=== PATIENT | female | born 1980 | race Caucasian/White ===

== ENCOUNTER 2018-06-01 05:39 | Emergency (ER) | payer OTHER ==
[~2018-06-01] VITALS: Ht 162.6 cm; Wt 63.5 kg
[~2018-06-01 05:39] MED LIST: NOHOMEMEDICATIONS; NORCO 5-325 TA1 EACH PO; ZOFRAN ODT4 M1 PO
[2018-06-01 06:13] LABS: ABSOLUTE BASOPHILS 0.1 thou/uL (0.0-0.2); ABSOLUTE EOSINOPHILS 0.3 thou/uL (0.0-0.7); ABSOLUTE LYMPHOCYTES 1.5 thou/uL (0.8-5.3); ABSOLUTE MONOCYTES 0.4 thou/uL (0.0-1.2); ABSOLUTE NEUTROPHILS 1.5 thou/uL (1.6-8.1); BASOPHILS 2.3 %; EOSINOPHILS 7.6 %; HEMATOCRIT 44.3 % (37.0-47.0); HEMOGLOBIN 14.8 gm/dL (12.0-15.0); LYMPHOCYTES 39.7 %; MCH 32.5 pg (26.0-34.0); MCHC 33.5 g/dL (28.0-37.0); MONOCYTES 10.6 %; MPV 8.1 fl. (7.2-11.1); NUCLEATED RBCS 0 /100WBC; PLATELET COUNT* 259 thou/uL (150-400); POLYS 39.8 %; RBC 4.56 mil/uL (4.20-5.00); RDW-CV 11.9 % (10.5-14.5); WBC 3.8 thou/uL (4.0-11.0)
[2018-06-01 06:18] LABS: ANION GAP 5 mmol/L (7-16); BUN 9 mg/dL (7-18); CALCIUM 8.6 mg/dL (8.5-10.1); CHLORIDE 104 mmol/L (98-107); CO2 30 mmol/L (21-32); CREATININE 0.7 mg/dL (0.6-1.3); GLUCOSE 97 mg/dL (70-99); POTASSIUM 3.9 mmol/L (3.5-5.1); SODIUM 139 mmol/L (136-145)
[2018-06-01 06:29] LABS: ALBUMIN 4.1 g/dL (3.4-5.0); ALKALINE PHOSPHATASE 50 U/L (46-116); LIPASE 169 U/L (73-393); NT-PRO BRAIN NAT PEPTIDE 39 pg/mL (<300); SGOT 25 U/L (15-37); SGPT 18 U/L (30-65); TOTAL BILIRUBIN 0.9 mg/dL (<0.1-1.0); TOTAL PROTEIN 7.7 g/dL (6.4-8.2); TROPONIN-I LEVEL <0.06 ng/mL (<0.06)
[2018-06-01 06:30] LABS: URINE BILIRUBIN NEGATIVE (Negative); URINE BLOOD 1+ (Negative); URINE CLARITY CLEAR; URINE COLOR YELLOW; URINE GLUCOSE-RANDOM NEGATIVE (Negative); URINE KETONES NEGATIVE (Negative); URINE LEUKOCYTES-REFLEX NEGATIVE (Negative); URINE NITRITE-REFLEX NEGATIVE (Negative); URINE PROTEIN NEGATIVE (Negative); URINE SPECIFIC GRAVITY <= 1.005 (1.005-1.030); URINE UROBILINOGEN 0.2 E.U./dl (0.2-1.0)
[2018-06-01 06:33] LABS: PROTIME 10.1 Seconds (9.20-11.50)
[2018-06-01 06:49] LABS: BACTERIA-REFLEX 1-9 Few /HPF (None Seen); CASTS None Seen /LPF (None Seen); CRYSTALS None Seen /LPF (None Seen); MUCUS 0-3 Light strn/LPF (None Seen); SQUAMOUS 4-10 Moderate /LPF (0-3); URINE RBC 3-10 Few /HPF (0-2); URINE WBC-REFLEX 0-5 Rare /HPF (0-5)
[2018-06-01 07:02] VITALS: BP 113/78
[2018-06-01 07:26] LABS: PLATELET ESTIMATE ADEQUATE
[2018-06-01 07:35] LABS: ANISOCYTOSIS 1+; POIKILOCYTOSIS 1+
[2018-06-01 13:14] LABS: HEMOGLOBIN 14.9 g/dL (11.1-15.9)
--- NOTE | 2018-06-01 14:52 | EKG ---
[place] [address] ELECTROCARDIOGRAM REPORT Name: JD STARR Room: [facility]#: [id number] Admission: 06/01/18 Attend Phys: Discharge: 06/01/18 Date of : 76 Report #: [id number] THIS REPORT FOR: //name// [facility] ED Test Date: 2018-06-01 Test Time: 05:44:31 Pat Name: JD STARR Department: Room: Gender: F [employer]: RADHA : 1980 Requested By: Natalia Najera Order Number: [id number] MD: Duke Epstein Measurements Intervals [place] Rate: 88 P: 71 LA: 153 QRS: 23 QRSD: 86 T: 43 QT: 365 QTc: 442 Interpretive Statements Sinus rhythm Possible left atrial enlargement Probable left ventricular hypertrophy Baseline wander in lead(s) II,III,aVF Compared to ECG 10/01/2011 13:58:25 No significant changes Electronically Signed On 06-01-2018 14:52:29 CDT by Duke Epstein [email or web address] <ELECTRONICALLY SIGNED> By: Duke Epstein MD, FACC 06/01/18 1452 0544 [id number] Duke Epstein MD, [facility] /EPI
== END 2018-06-01 07:04 | disposition home or self-care (01) ==
LOC: M.ERS 05:39
PROVIDERS: Emergency Medicine
DX: R07.89 Other chest pain (principal); Z91.040 Latex allergy status; Z91.041 Radiographic dye allergy status